=== PATIENT | female | born 1960 ===

== ENCOUNTER 2017-10-28 09:41 | Emergency (ER) | payer BC ==
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
--- NOTE | 2017-10-28 10:42 | RAD ---
Indication: Headache. CT of the brain was performed without IV contrast. Ventricular structures are midline. No midline shift is noted. The extra-axial spaces are unremarkable. There is no evidence of intracranial mass or hemorrhage. No other high or low density lesions identified. Mastoid air cells and paranasal sinuses are otherwise unremarkable. Mucosal thickening of the left maxillary sinus is noted. IMPRESSION: No intracranial mass or hemorrhage is noted. Mucosal thickening left maxillary sinus.
[2017-10-28 11:38] VITALS: BP 136/84
== END 2017-10-28 11:38 | disposition home or self-care (01) ==
LOC: ED 09:41
DX: S02.2XXA Fracture of nasal bones, initial encounter for closed fracture (principal); W54.1XXA Struck by dog, initial encounter; Y92.9 Unspecified place or not applicable
CPT/HCPCS: 70450; 70486; 99282

== ENCOUNTER 2017-11-06 07:45 | Day surgery (SDC) | payer BC ==
[~2017-11-06 07:45] MED LIST: Buffered Lidocaine 0.9% SYRIN* 5 ML/SYR SYRINGE INTRADERM ONE; Dexamethasone IV* 4 MG/ML 1 ML (4 MG) IV SLOW PU ONE; Famotidine IV* 10 MG/ML 2 ML (20 mg) IV ONE
[2017-11-06] MEDS ORDERED: ceFAZolin 2 GM PREMIX (*) 2 GM/50 ML BAG IVPB ONE (08:00)
[2017-11-06] MEDS ORDERED: Famotidine IV* 10 MG/ML 2 ML (20 mg) ONE (08:01)
[2017-11-06] MEDS ORDERED: Dexamethasone IV* 4 MG/ML 1 ML (4 MG) ONE ×2 (08:01→08:55)
[2017-11-06] MEDS ORDERED: fentaNYL* 50 MCG/ML 2 ML VIAL (100 MCG VIAL) ONE (08:54)
[2017-11-06] MEDS ORDERED: Propofol* 10 MG/ML 20 ML BTL IV PUSH ONE (08:55)
[2017-11-06] MEDS ORDERED: Lidocaine 2% PF * 5 ML VIAL ONE (08:55)
[2017-11-06] MEDS ORDERED: Ketorolac INJ* 30 MG/ML 1 ML VIAL ONE (08:55)
[2017-11-06] MEDS ORDERED: Cocaine 4% TOPICAL* 4 ML TOP.SOLN ONE (08:59)
[2017-11-06] MEDS ORDERED: Bupivacaine 0.25% SDV* 30 ML ONE (08:59)
[2017-11-06] MEDS ORDERED: EPINEPHrine SYR 0.1 MG/ML* (1:10,000) SYRINGE ONE (09:03)
[2017-11-06] MEDS ORDERED: Oxymetazoline 0.05% NASAL SPR* 15 ML BTL ONE (09:04)
[2017-11-06] MEDS ORDERED: Lidocaine 1% MPF wEPI 200,000* 30 ML SDV ONE (09:05)
[2017-11-06] MEDS ORDERED: Bacitracin OINTMENT* 0.5% 0.5 oz TUBE ONE (09:20)
[2017-11-06] MEDS ORDERED: DiMENhydriNATE IV* 50 MG/ML VIAL IV PUSH PRN (09:40)
[2017-11-06] MEDS ORDERED: fentaNYL* 50 MCG/ML 2 ML VIAL (100 MCG VIAL) IV PRN (09:40)
[2017-11-06] MEDS ORDERED: HYDROcodone/ACETAMIN 5-325 MG* 1 TAB ONE (09:44)
[2017-11-06 10:26] VITALS: BP 148/84
== END 2017-11-06 10:36 | disposition home or self-care (01) ==
LOC: OREAST 07:45
PROVIDERS: ATTEND Plastic Surgery
DX: S02.2XXA Fracture of nasal bones, initial encounter for closed fracture (principal); W54.1XXA Struck by dog, initial encounter; Y92.9 Unspecified place or not applicable; Z87.891 Personal history of nicotine dependence
CPT/HCPCS: A9270-GY; J0171; J0690; J1100; J1885; J2001; J2704; J3010